=== PATIENT | female | born 1965 | race Caucasian/White ===

== ENCOUNTER 2024-06-24 20:04 | Inpatient (IN) | payer OTHER ==
[~2024-06-24] VITALS: Ht 162.6 cm; Wt 92.1 kg
[2024-06-24] MEDS ORDERED: CT SWABBABLE VALVE TRANS SET 1 EA INFUS.SET MC ONE (20:31)
[2024-06-24] MEDS ORDERED: IV NS 0.9% 250 ML IV ONE (20:31)
[2024-06-24] MEDS ORDERED: IOHEXOL-350 100 ML VIAL IV ONE (20:31)
[2024-06-24 20:41] LABS: BASOPHILS % (AUTO) 0.4 % (0.0-2.0); EOSINOPHILS % (AUTO) 0.2 % (0.0-6.0); HEMATOCRIT 40 % (33-45); HEMOGLOBIN 13.4 g/dL (11.5-14.8); LYMPHOCYTES # (AUTO) 0.4 K/uL (0.8-4.8); LYMPHOCYTES % (AUTO) 3.6 % (20.0-44.0); MEAN CORPUSCULAR HEMOGLOBIN 28 PG (26.0-33.0); MEAN CORPUSCULAR HGB CONC 33 g/dl (31.0-36.0); MEAN CORPUSCULAR VOLUME 86 fL (82-100); MONOCYTES # (AUTO) 0.6 K/uL (0.1-1.30); MONOCYTES % (AUTO) 5.4 % (2.0-12.0); NEUTROPHILS # (AUTO) 10.1 K/uL (1.8-8.9); NEUTROPHILS % (AUTO) 90.4 % (43.0-81.0); PLATELET COUNT (AUTO) 301 K/uL (150-450); RED BLOOD CELL COUNT(AUTO) 4.71 MIL/uL (4.0-5.2); RED CELL DISTRIBUTION WIDTH 13.6 % (11.5-15.0); WHITE BLOOD COUNT (AUTO) 11.2 K/uL (4.3-11.0)
[2024-06-24 20:54] LABS: INR 0.97 (0.91-1.10); PARTIAL THROMBOPLASTIN TIME 24.7 SEC (24.3-34.3); PROTHROMBIN TIME 10.3 SECS (9.2-11.1); SERUM AMMONIA 7 umol/L (11-32)
[2024-06-24 20:57] LABS: ALCOHOL, BLOOD < 3 mg/dL (0-10); SALICYLATE 3.3 mg/dL (2.8-20.0)
[2024-06-24 20:58] LABS: ACETAMINOPHEN 0 ug/ml (10-30)
[2024-06-24] MEDS: IV LR 1000 ML 1,000 ML BAG IV ONE (21:00)
[2024-06-24 21:06] LABS: CALCIUM, SERUM 8.9 mg/dL (8.5-10.1); CARBON DIOXIDE 25 mmol/L (21-32); CHLORIDE 106 mmol/L (98-107); CREATININE 1.4 mg/dL (0.6-1.3); LACTIC ACID 2.6 mmol/L (0.4-2.0); POTASSIUM 5.4 mmol/L (3.5-5.1); SODIUM SERUM 138 mmol/L (136-145); UREA NITROGEN, BLOOD 36 mg/dL (7-18)
[2024-06-24 21:11] LABS: ALANINE AMINOTRANSFERASE 17 U/L (12-78); ALKALINE PHOSPHATASE 97 U/L (46-116); ASPARTATE AMINOTRANSFERASE 10 U/L (15-37); BILIRUBIN,DIRECT 0.1 mg/dL (0.0-0.2); BILIRUBIN,TOTAL 0.3 mg/dL (0.2-1.0); GLUCOSE 468 mg/dL (74-106); TOTAL PROTEIN, SERUM 7.4 g/dL (6.4-8.2)
[2024-06-24 21:12] LABS: APPEARANCE,URINE CLEAR (CLEAR); BILIRUBIN,URINE NEGATIVE (NEGATIVE); BLOOD, URINE TRACE-INTA Ery/uL (NEGATIVE); COLOR,URINE YELLOW (YELLOW); KETONES,URINE NEGATIVE (NEGATIVE); LEUKOCYTE ESTERASE ,URINE NEGATIVE (NEGATIVE); NITRITE, URINE NEGATIVE (NEGATIVE); PROTEIN,URINE 3+ mg/dl (NEGATIVE); UGLUCOSE 3+ mg/dL (NEGATIVE); UROBILINOGEN,URINE 0.2 EU/dL (0.2)
[2024-06-24 21:31] LABS: AMPHETAMINE, URINE NEGATIVE (NEGATIVE); BARBITURATE, URINE NEGATIVE (NEGATIVE); BENZODIAZEPINE, URINE NEGATIVE (NEGATIVE); CANNABINOID, URINE NEGATIVE (NEGATIVE); COCCAINE, URINE NEGATIVE (NEGATIVE); OPIATE, URINE NEGATIVE (NEGATIVE); PHENCYCLIDINE SCREEN,URINE NEGATIVE (NEGATIVE)
[2024-06-24 21:33] LABS: ABG BASE EXCESS -3.6 mmol/L (-2.0-3.0); ABG PH 7.381 (7.350-7.450); ABG PO2 55.6 mmHg (83.0-108.0); ABG TOTAL HEMOGLOBIN 13.8 G/dL (12.0-16.0); COHb 1.4 % (0.5-1.5); MetHb 0.3 % (0.0-1.5); O2Hb 87.5 % (94.0-97.0); SITE, ABG RIGHT RADIAL
[2024-06-24 22:07] LABS: ADD URINE CULTURE YES; BACTERIA,URINE 2+ /HPF (None Seen); WBC,URINE NONE SEEN /HPF (0-3)
[2024-06-24 22:09] LABS: COARSE GRANULAR CASTS,URINE Rare /LPF (None Seen)
[2024-06-24] MEDS ORDERED: MAGNESIUM HYDROXIDE 30 ML UDC PO PRN (23:30)
[2024-06-24] MEDS ORDERED: ACETAMINOPHEN 325 MG TABLET PO PRN (23:30)
[2024-06-24] MEDS ORDERED: DEXTROSE 50%-WATER 50 ML DISP.SYRIN IV PRN (23:30)
[2024-06-24] MEDS ORDERED: ONDANSETRON HCL/PF 4 MG/2 ML VIAL IVP PRN (23:30)
[2024-06-24] MEDS ORDERED: Z GUARD REMEDY 4 OZ OINT TP PRN (23:30)
[2024-06-24] MEDS ORDERED: MAG HYDROX/AL HYDROX/SIMETH 30 ML UDC PO PRN (23:30)
[2024-06-25] MEDS: BLOOD SUGAR DIAGNOSTIC 1 EACH STRIP IN SCH
[2024-06-25] MEDS: INSULIN REGULAR, HUMAN 100 UNIT/ML 3 ML VIAL SQ PRN (00:19)
[2024-06-25] MEDS: AZITHROMYCIN 500 MG in IV D5W 250 ML IV SCH (01:30)
[2024-06-25 01:32] VITALS: BP 125/62; TEMP 98.7; O2SAT 96
[2024-06-25] MEDS: CEFTRIAXONE 1 G in IV D5W 50 ML IV SCH ×2 (01:47→20:39)
[2024-06-25] MEDS: CEFTRIAXONE 1GM BAG (ER ONLY) 50 ML IV ONE (02:04)
[2024-06-25] MEDS ORDERED: AZITHROMYCIN 500 MG VIAL ONE (03:36)
[2024-06-25 04:00] VITALS: BP 157/70; TEMP 100.6; O2SAT 97
[2024-06-25 08:00] VITALS: BP_SYST 106; BP_SYST 153; BP_DIAS 68; BP_DIAS 80; TEMP 102.4; TEMP 98.2; O2SAT 100; O2SAT 98
[2024-06-25 08:31] LABS: BASOPHILS % (AUTO) 0.5 % (0.0-2.0); EOSINOPHILS % (AUTO) 0.1 % (0.0-6.0); HEMATOCRIT 37 % (33-45); HEMOGLOBIN 12.8 g/dL (11.5-14.8); LYMPHOCYTES # (AUTO) 0.6 K/uL (0.8-4.8); MEAN CORPUSCULAR HEMOGLOBIN 29 PG (26.0-33.0); MEAN CORPUSCULAR HGB CONC 35 g/dl (31.0-36.0); MEAN CORPUSCULAR VOLUME 85 fL (82-100); MONOCYTES # (AUTO) 0.8 K/uL (0.1-1.30); MONOCYTES % (AUTO) 11.5 % (2.0-12.0); NEUTROPHILS # (AUTO) 5.7 K/uL (1.8-8.9); NEUTROPHILS % (AUTO) 79.9 % (43.0-81.0); PLATELET COUNT (AUTO) 253 K/uL (150-450); RED BLOOD CELL COUNT(AUTO) 4.35 MIL/uL (4.0-5.2); RED CELL DISTRIBUTION WIDTH 13.5 % (11.5-15.0); WHITE BLOOD COUNT (AUTO) 7.1 K/uL (4.3-11.0)
[2024-06-25] MEDS ORDERED: ASCO500T10 PO (08:34)
[2024-06-25] MEDS ORDERED: GLIP10TA11 PO (08:34)
[2024-06-25] MEDS ORDERED: METF-442 PO (08:34)
[2024-06-25] MEDS ORDERED: MULT-213 PO (08:34)
[2024-06-25] MEDS ORDERED: ATOR10TA PO (08:34)
[2024-06-25] MEDS ORDERED: ACET325T53 PO (08:34)
[2024-06-25] MEDS ORDERED: ZINC50TA69 PO (08:34)
[2024-06-25 08:41] LABS: CALCIUM, SERUM 8.8 mg/dL (8.5-10.1); CREATININE 1.1 mg/dL (0.6-1.3); MAGNESIUM 1.9 mg/dL (1.8-2.4); PHOSPHORUS 2.9 mg/dL (2.5-4.9); POTASSIUM 4.1 mmol/L (3.5-5.1)
[2024-06-25] MEDS: HEPARIN SODIUM, PORCINE 5000 UNITS/1 ML VIAL SQ SCH (09:58)
[2024-06-25 12:00] VITALS: BP_SYST 105; BP_SYST 158; BP_DIAS 53; BP_DIAS 70; TEMP 98.4; TEMP 99.9; O2SAT 93
[2024-06-25 16:00] VITALS: BP 155/82; TEMP 99.3; O2SAT 96
[2024-06-25 20:00] VITALS: BP 133/67; TEMP 100.2; O2SAT 98
[2024-06-26] VITALS (8 sets, daily range): BP systolic 130–143; BP diastolic 70–90; TEMP 98–99.1; O2SAT 90–100
[2024-06-26 08:49] LABS: BASOPHILS % (AUTO) 0.5 % (0.0-2.0); EOSINOPHILS % (AUTO) 0.1 % (0.0-6.0); HEMATOCRIT 37 % (33-45); HEMOGLOBIN 12.5 g/dL (11.5-14.8); LYMPHOCYTES # (AUTO) 1.7 K/uL (0.8-4.8); LYMPHOCYTES % (AUTO) 25.9 % (20.0-44.0); MEAN CORPUSCULAR HEMOGLOBIN 29 PG (26.0-33.0); MEAN CORPUSCULAR HGB CONC 34 g/dl (31.0-36.0); MEAN CORPUSCULAR VOLUME 85 fL (82-100); MONOCYTES # (AUTO) 1.1 K/uL (0.1-1.30); MONOCYTES % (AUTO) 16.1 % (2.0-12.0); NEUTROPHILS # (AUTO) 3.8 K/uL (1.8-8.9); NEUTROPHILS % (AUTO) 57.4 % (43.0-81.0); PLATELET COUNT (AUTO) 253 K/uL (150-450); RED BLOOD CELL COUNT(AUTO) 4.33 MIL/uL (4.0-5.2); RED CELL DISTRIBUTION WIDTH 13.3 % (11.5-15.0); WHITE BLOOD COUNT (AUTO) 6.7 K/uL (4.3-11.0)
[2024-06-26] MEDS: ALBUTEROL HALF STRENGTH 1.25 MG/3 ML VIAL.NEB NEB SCH (10:00)
[2024-06-26 11:36] LABS: CREATININE 1.1 mg/dL (0.6-1.3)
[2024-06-26 11:46] LABS: ALBUMIN 2.4 g/dL (3.4-5.0); BILIRUBIN,TOTAL 0.2 mg/dL (0.2-1.0); TOTAL PROTEIN, SERUM 6.5 g/dL (6.4-8.2)
[2024-06-26 11:54] LABS: CALCIUM, SERUM 8.7 mg/dL (8.5-10.1); MAGNESIUM 2.1 mg/dL (1.8-2.4); PHOSPHORUS 4.6 mg/dL (2.5-4.9)
[2024-06-27] VITALS (12 sets, daily range): BP systolic 120–144; BP diastolic 63–76; TEMP 97.9–98.6; O2SAT 93–100
[2024-06-27] MEDS ORDERED: AZIT500T4 PO (09:25)
[2024-06-27] MEDS ORDERED: OSEL75CA PO (09:25)
[2024-06-27] MEDS ORDERED: ACETAMINOPHEN 325 MG TABLET PO PRN (09:30)
[2024-06-27] MEDS: OSELTAMIVIR PHOSPHATE 75 MG CAPSULE PO SCH (10:19)
[2024-06-27] MEDS: METFORMIN 500 MG TABLET PO SCH (17:35)
[2024-06-27] MEDS: ATORVASTATIN 10 MG TABLET PO SCH (21:41)
[2024-06-28] VITALS (9 sets, daily range): BP systolic 122–123; BP diastolic 55; TEMP 97.5–97.7; O2SAT 94–99
[2024-06-28] MEDS: MULTIVIT W/MINERALS 1 TAB TABLET PO SCH (08:19)
[2024-06-28] MEDS: ASCORBIC ACID 500 MG TABLET PO SCH (08:19)
[2024-06-28] MEDS: ZINC SULFATE 220 MG CAPSULE PO SCH (08:19)
== END 2024-06-28 15:08 | DRG 139 ==
LOC: ER 20:18 → TELE1 06-25 00:40 → MEDSG1 06-25 13:29
PROVIDERS: ATTEND Internal Medicine
DX: J15.9 Unspecified bacterial pneumonia (principal); G92.8 Other toxic encephalopathy; N17.9 Acute kidney failure, unspecified; E87.20 Acidosis, unspecified; E87.0 Hyperosmolality and hypernatremia; E11.9 Type 2 diabetes mellitus without complications; J10.08 Influenza due to other identified influenza virus with other specified pneumonia; E78.5 Hyperlipidemia, unspecified; Z20.822 Contact with and (suspected) exposure to COVID-19; E11.65 Type 2 diabetes mellitus with hyperglycemia; I10 Essential (primary) hypertension; M89.8X9 Other specified disorders of bone, unspecified site; E87.5 Hyperkalemia; D33.2 Benign neoplasm of brain, unspecified; E86.9 Volume depletion, unspecified; R29.703 NIHSS score 3
CPT/HCPCS: 36415; 36600; 70450-TC; 70496-TC; 70498-TC; 71045-TC; 80048-TC; 80053-TC; 80061-TC; 80076-TC; 81001; 82140-TC; 82803-TC; 82962-TC; 83605-TC; 83735-TC; 84100-TC; 84443-TC; 84484-TC; 85025-TC; 85730-TC; 87040-TC; 87081-TC; 87086-TC; 92526; 92611-TC; 94799-TC; 97110-TC; 97116-TC; 97530-TC; A4223; G0378; G0480; J0456; J0696; J1644; J1815; J7050; J7060; J7120; Q9967

== ENCOUNTER 2024-09-21 09:01 | Inpatient (IN) | payer MEDICAID, OTHER ==
[~2024-09-21] VITALS: Ht 165.1 cm; Wt 88.0 kg
[~2024-09-21 09:01] MED LIST: ACET325T53 PO; ASCO500T10 PO; ATOR10TA PO; AZIT500T4 PO; GLIP10TA11 PO; METF-442 PO; MULT-213 PO; OSEL75CA PO; ZINC50TA69 PO
[2024-09-21] MEDS: IV NS 0.9% 1,000 ML BAG IV ONE (09:30)
[2024-09-21 09:36] LABS: BASOPHILS % (AUTO) 0.3 % (0.0-2.0); EOSINOPHILS # (AUTO) 0.1 K/uL (0.0-0.7); EOSINOPHILS % (AUTO) 0.8 % (0.0-6.0); HEMATOCRIT 45 % (33-45); LYMPHOCYTES # (AUTO) 0.5 K/uL (0.8-4.8); LYMPHOCYTES % (AUTO) 7.3 % (20.0-44.0); MEAN CORPUSCULAR HEMOGLOBIN 27 PG (26.0-33.0); MEAN CORPUSCULAR HGB CONC 33 g/dl (31.0-36.0); MEAN CORPUSCULAR VOLUME 82 fL (82-100); MONOCYTES # (AUTO) 0.4 K/uL (0.1-1.30); MONOCYTES % (AUTO) 6.1 % (2.0-12.0); NEUTROPHILS # (AUTO) 6.2 K/uL (1.8-8.9); NEUTROPHILS % (AUTO) 85.5 % (43.0-81.0); PLATELET COUNT (AUTO) 249 K/uL (150-450); RED BLOOD CELL COUNT(AUTO) 5.52 MIL/uL (4.0-5.2); RED CELL DISTRIBUTION WIDTH 14.2 % (11.5-15.0); WHITE BLOOD COUNT (AUTO) 7.3 K/uL (4.3-11.0)
[2024-09-21 09:43] LABS: CARBON DIOXIDE 24 mmol/L (21-32); CHLORIDE 101 mmol/L (98-107); CREATININE 1.3 mg/dL (0.6-1.3); GLUCOSE 338 mg/dL (74-106); POTASSIUM 4.5 mmol/L (3.5-5.1); SODIUM SERUM 135 mmol/L (136-145); UREA NITROGEN, BLOOD 41 mg/dL (7-18)
[2024-09-21 10:26] LABS: APPEARANCE,URINE CLEAR (CLEAR); BILIRUBIN,URINE NEGATIVE (NEGATIVE); BLOOD, URINE TRACE-INTA Ery/uL (NEGATIVE); COLOR,URINE YELLOW (YELLOW); KETONES,URINE NEGATIVE (NEGATIVE); LEUKOCYTE ESTERASE ,URINE NEGATIVE (NEGATIVE); NITRITE, URINE NEGATIVE (NEGATIVE); PH,URINE 5.5 (5.0-8.0); PROTEIN,URINE 2+ mg/dl (NEGATIVE); UGLUCOSE 3+ mg/dL (NEGATIVE); UROBILINOGEN,URINE 0.2 EU/dL (0.2)
[2024-09-21] MEDS ORDERED: DEXTROSE 50%-WATER 50 ML DISP.SYRIN IV PRN (11:00)
[2024-09-21] MEDS ORDERED: hydrALAZINE HCL IV 20 MG VIAL IV PRN (11:00)
[2024-09-21] MEDS ORDERED: ACETAMINOPHEN 325 MG TABLET PO PRN (11:00)
[2024-09-21] MEDS ORDERED: MORPHINE SULFATE INJ 2 MG/ML DISP.SYRIN IV PRN (11:00)
[2024-09-21] MEDS: BLOOD SUGAR DIAGNOSTIC 1 EACH STRIP IN SCH (12:00)
[2024-09-21 13:32] LABS: SQUAMOUS EPITHELIAL CELL,UR Many /HPF (None Seen); YEAST,URINE Moderate /HPF (None Seen)
[2024-09-21 13:34] LABS: ADD URINE CULTURE YES; BACTERIA,URINE Few /HPF (None Seen)
[2024-09-21] MEDS: IV NS 0.9% 1,000 ML IV SCH (15:41)
[2024-09-21] MEDS: INSULIN REGULAR, HUMAN 100 UNIT/ML 3 ML VIAL SQ PRN (17:15)
[2024-09-21] MEDS: DOCUSATE SODIUM LIQ 100 MG/10 ML UDC PO SCH (17:22)
[2024-09-21 18:00] VITALS: BP 139/68; TEMP 99.7; O2SAT 96
[2024-09-21 20:00] VITALS: BP 145/62; TEMP 98.6; O2SAT 96
[2024-09-21] MEDS: HEPARIN SODIUM, PORCINE 5000 UNITS/1 ML VIAL SQ SCH (20:36)
[2024-09-21] MEDS: ATORVASTATIN 10 MG TABLET PO SCH (22:30)
[2024-09-22 06:40] LABS: BASOPHILS % (AUTO) 0.3 % (0.0-2.0); EOSINOPHILS # (AUTO) 0.2 K/uL (0.0-0.7); HEMATOCRIT 39 % (33-45); HEMOGLOBIN 13.4 g/dL (11.5-14.8); LYMPHOCYTES # (AUTO) 2.3 K/uL (0.8-4.8); LYMPHOCYTES % (AUTO) 34.8 % (20.0-44.0); MEAN CORPUSCULAR HEMOGLOBIN 28 PG (26.0-33.0); MEAN CORPUSCULAR HGB CONC 34 g/dl (31.0-36.0); MEAN CORPUSCULAR VOLUME 82 fL (82-100); MONOCYTES # (AUTO) 0.7 K/uL (0.1-1.30); MONOCYTES % (AUTO) 11.5 % (2.0-12.0); NEUTROPHILS # (AUTO) 3.3 K/uL (1.8-8.9); NEUTROPHILS % (AUTO) 50.4 % (43.0-81.0); PLATELET COUNT (AUTO) 236 K/uL (150-450); RED CELL DISTRIBUTION WIDTH 14.1 % (11.5-15.0); WHITE BLOOD COUNT (AUTO) 6.5 K/uL (4.3-11.0)
[2024-09-22 06:55] LABS: ALBUMIN 2.3 g/dL (3.4-5.0); BILIRUBIN,TOTAL 0.3 mg/dL (0.2-1.0); CALCIUM, SERUM 8.4 mg/dL (8.5-10.1); CREATININE 0.8 mg/dL (0.6-1.3); MAGNESIUM 2.1 mg/dL (1.8-2.4); PHOSPHORUS 3.2 mg/dL (2.5-4.9); POTASSIUM 4.2 mmol/L (3.5-5.1); TOTAL PROTEIN, SERUM 5.7 g/dL (6.4-8.2)
[2024-09-22 08:00] VITALS: BP 123/52; TEMP 98.2; O2SAT 97
[2024-09-22] MEDS: POLYETHYLENE GLYCOL 3350 17 GM POWD.PACK PO SCH (08:16)
[2024-09-22] MEDS: CEFTRIAXONE 1 G in IV D5W 50 ML IV SCH (08:49)
[2024-09-22 16:00] VITALS: BP 140/59; TEMP 97.9; O2SAT 96
[2024-09-22 20:00] VITALS: BP 129/57; TEMP 97.9; O2SAT 97
[2024-09-23] MEDS: CEFTRIAXONE 1 G in IV D5W 50 ML IV ONE (07:39)
[2024-09-23 08:00] VITALS: BP 138/59; TEMP 98.1
[2024-09-23 16:00] VITALS: BP 140/58; TEMP 98.2; O2SAT 95
[2024-09-23] MEDS: IV NS 0.9% 1,000 ML IV PRN (18:10)
[2024-09-23 20:00] VITALS: BP 155/51; TEMP 98.2; O2SAT 96
[2024-09-23 22:37] VITALS: BP 155/51; TEMP 98.2; O2SAT 96
[2024-09-24 08:00] VITALS: BP 150/60; TEMP 98.2; O2SAT 95
[2024-09-24 08:52] VITALS: BP 150/64; TEMP 98.2; O2SAT 95
[2024-09-24] MEDS: ONDANSETRON HCL/PF 4 MG/2 ML VIAL IVP PRN (09:04)
[2024-09-24 16:00] VITALS: BP 148/65; TEMP 98.3; O2SAT 96
[2024-09-24 16:02] VITALS: BP 158/76; TEMP 98.3; O2SAT 96
[2024-09-24 20:00] VITALS: BP 156/65; TEMP 97.7; O2SAT 96; O2SAT 98
[2024-09-25 16:49] LABS: THYROID STIMULATING HORMONE 1.47 uIU/mL (0.358-3.74)
[2024-09-26 11:07] LABS: FOLIC ACID 12.8 ng/mL (>3.0)
== END 2024-09-25 18:35 | DRG 422 ==
LOC: ER 09:06 → TELE 14:19 → MED 14:59
PROVIDERS: ADMIT Internal Medicine; ATTEND Internal Medicine
DX: E86.0 Dehydration (principal); R53.2 Functional quadriplegia; R62.7 Adult failure to thrive; E87.1 Hypo-osmolality and hyponatremia; E11.65 Type 2 diabetes mellitus with hyperglycemia; D75.1 Secondary polycythemia; E78.5 Hyperlipidemia, unspecified; Z91.81 History of falling; Z79.84 Long term (current) use of oral hypoglycemic drugs; Z79.899 Other long term (current) drug therapy
CPT/HCPCS: 36415; 70450-TC; 71045-TC; 80048-TC; 80053-TC; 81001; 82607-TC; 82962-TC; 83735-TC; 83921; 84100-TC; 84425; 84443-TC; 84484-TC; 85025-TC; 87081-TC; 87086-TC; 97110-TC; 97112-TC; 97116-TC; 97530-TC; A4223; G0378; J0696; J1644; J1815; J2405; J7030; J7060

== ENCOUNTER 2024-12-27 22:38 | Emergency (ER) | payer MEDICAID ==
[~2024-12-27] VITALS: Ht 165.1 cm; Wt 93.0 kg
[~2024-12-27 22:38] MED LIST changes: -AZIT500T4 PO; -OSEL75CA PO
[2024-12-27] MEDS ORDERED: LISI-768 PO (23:00)
[2024-12-27] MEDS ORDERED: EMPA10TA PO (23:00)
[2024-12-27] MEDS ORDERED: CLON0.1T PO (23:00)
[2024-12-27] MEDS ORDERED: CLON1PAT13 TD (23:00)
[2024-12-27] MEDS: IV NS 0.9% 1,000 ML BAG IV ONE (23:37)
[2024-12-27 23:44] LABS: PLATELET COUNT (AUTO) 324 K/uL (150-450); RED BLOOD CELL COUNT(AUTO) 5.06 MIL/uL (4.0-5.2); RED CELL DISTRIBUTION WIDTH 14.4 % (11.5-15.0); WHITE BLOOD COUNT (AUTO) 10.4 K/uL (4.3-11.0)
[2024-12-27 23:50] LABS: APPEARANCE,URINE CLEAR (CLEAR); BLOOD, URINE TRACE-INTA Ery/uL (NEGATIVE); LEUKOCYTE ESTERASE ,URINE NEGATIVE (NEGATIVE); NITRITE, URINE NEGATIVE (NEGATIVE); UGLUCOSE 3+ mg/dL (NEGATIVE)
[2024-12-27 23:50] LABS: CALCIUM, SERUM 9.0 mg/dL (8.5-10.1); CREATININE 1.1 mg/dL (0.6-1.3); SODIUM SERUM 138.0 mmol/L (136-145); UREA NITROGEN, BLOOD 21.0 mg/dL (7-18)
[2024-12-28] LABS: ADD URINE CULTURE NO; SQUAMOUS EPITHELIAL CELL,UR Few /HPF (None Seen)
[2024-12-28 01:17] VITALS: BP 148/72; TEMP 98.1; O2SAT 92
== END 2024-12-28 01:30 ==
LOC: ER 22:50
DX: E11.65 Type 2 diabetes mellitus with hyperglycemia (principal); Z79.84 Long term (current) use of oral hypoglycemic drugs; Z79.899 Other long term (current) drug therapy
CPT/HCPCS: 99284; 96360; 71045; 85025; 80048; 82010; 81001; 36415; 82962 ×3; J7030